=== PATIENT | male | born 1965 | race Caucasian/White ===

== ENCOUNTER 2016-10-29 05:40 | Emergency (ER) | payer BC ==
[~2016-10-29 05:40] MED LIST: COLACE PO; FIORICET 50-321 EACH PO; FLEXERIL10 MG PO; HYDROCODON-ACE1 EAC9 PO; KETOPROFEN PO; LORTAB 5/500 TA1 TA2 PO; NAPROXEN PO; NO MEDICATIONS; ULTRAM PO; VICODIN PO; VISTARIL PO
== END 2016-10-29 06:40 | disposition home or self-care (01) ==
LOC: CED 05:40
DX: S46.011A Strain of muscle(s) and tendon(s) of the rotator cuff of right shoulder, initial encounter (principal); I10 Essential (primary) hypertension; G40.909 Epilepsy, unspecified, not intractable, without status epilepticus; K85.90 Acute pancreatitis without necrosis or infection, unspecified; X58.XXXA Exposure to other specified factors, initial encounter; Y92.9 Unspecified place or not applicable
CPT/HCPCS: 99283